=== PATIENT | female | born 1975 ===

== ENCOUNTER 2019-08-18 05:00 | Inpatient (IN) | payer OTHER ==
[~2019-08-18] VITALS: Ht 167.6 cm; Wt 116.6 kg
== END 2019-08-20 08:36 | disposition home or self-care (01) | DRG 743 ==
LOC: CIR.AMB 05:00 → OB/GYN 11:12
PROVIDERS: ADMIT Obstetrics & Gynecology
PROC: 0UDB8ZZ Extraction of Endometrium, Via Natural or Artificial Opening Endoscopic (ICD-10-PCS; 2019-08-18)
PROC: 0UB90ZZ Excision of Uterus, Open Approach (ICD-10-PCS; principal; 2019-08-18 16:30)
DX: D25.9 Leiomyoma of uterus, unspecified (principal); N84.0 Polyp of corpus uteri